=== PATIENT | male | born 1980 | race Caucasian/White ===

== ENCOUNTER → 2017-06-23 12:20 | Outpatient (CLI) | payer OTHER, SELFPAY ==
--- NOTE | 2017-06-23 12:26 | XR_ITS ---
XR KUB HISTORY: ITS.REASON: KIDNEY STONE ORDERING PHYSICIAN: Frantz Daley MD PATIENT AGE: 37 years COMPARISON: FINDINGS: The bowel gas pattern is unremarkable. No obvious obstruction.. No abnormal calcifications are evident. No obvious renal or ureteral calculi.. No acute bony anomalies evident. There was a right UVJ stone on previous CT of 06/01/2017. Small calcific density is present in the right pelvic region but is felt to represent phlebolith more inferior than water one would expect the ureterovesical junction. No definite ureteral calculi evident. IMPRESSION: No obvious renal or ureteral stones.
== END ==
PROVIDERS: PCP Family Medicine; Visit Provider Urology
DX: N20.0 Calculus of kidney (principal)
CPT/HCPCS: 74018

== ENCOUNTER → 2017-07-13 13:24 | Outpatient (CLI) | payer OTHER, SELFPAY ==
--- NOTE | 2017-07-13 13:28 | CT_ITS ---
CT abdomen pelvis wo con Ordering Physician: Frantz Daley MD Patient Age: 37 years: Male HISTORY: ITS.REASON: URETERAL CALCULUS Right flank pain right-sided kidney stone 37-year-old TECHNIQUE: Helical CT scanning performed abdomen pelvis with no oral nor IV contrast utilized. Axial sagittal and coronal reconstructions performed on CT workstation. All CT scans at this facility used one or more dose reduction techniques , viz: automatic exposure control, ma/Kv adjustment per patient's size, (including targeted exam where dose matched to the indication; i.e. head); or iterative reconstruction technique COMPARISON :June 01, 2017 CT abdomen pelvis ====FINDINGS ==== TRACT. Again see a small 2.5 mm calcification at the right pelvis basin which appears appears be a persistent small calculus distal most right UVJ.., As seen on 06/01/2017 CT abdomen. However on the previous CT abdomen study the right ureter appears mildly dilated throughout. Now appears smaller and decompressed overall. Only The final 2 cm leading towards this right UVJ stone appear slightly dilated... There is no associated right hydronephrosis or significant dilatation of proximal right ureter seen on this follow-up study. No additional renal calculi within either kidney. Kidneys normal in shape and configuration. Prostate moderate size as are seminal vesicles. Phlebolith at the left pelvic basin noted and unchanged. Lung bases. Clear. No active disease heart normal size Abdomen/pelvis. Lack of oral and IV contrast decreases sensitivity. Liver. Suggestion of vague slightly patchy fatty changes throughout. No focal lesions of concern. Spleen normal size. Noncontrast pancreas unremarkable. Adrenals unremarkable. Gallbladder. Likely sludge but no discrete calcified stones No free fluid or free air within the pelvis or abdomen. GI TRACT.: Stomach. Moderate food and fluid within stomach.. Small bowel. Unremarkable no dilatation or obstruction. Terminal ileum unremarkable. Appendix upper normal caliber of 8 mm but appears similar to previous study with no significant stranding or inflammation otherwise to raise concern.. Moderate stool the right colon and cecum; with minimal stool & gas otherwise throughout the left colon Osseous... No lesions. Disc space narrowing L5/S1 IMPRESSION 1. Small 2.5 mm calculus right ureter just proximal to the right UVJ is again seen it itself has not changed significantly since 06/01/2017 CT However since prior study the right ureter appears to have decompressed , and returned to near normal caliber. Only suggestion slight generous caliber distal most right ureter just medial proximal distal ureteral stone. No hydronephrosis & majority of right ureter otherwise is normal caliber & unremarkable.
== END ==
PROVIDERS: Family Provider Family Medicine; PCP Family Medicine; Visit Provider Urology
DX: N20.0 Calculus of kidney (principal)
CPT/HCPCS: 74176

== ENCOUNTER 2019-10-21 23:03 | Emergency (ER) | payer MEDICAID, SELFPAY ==
[2019-10-21 23:12] VITALS: BP 147/75; RESP 15; TEMP 36.8; O2SAT 98; BMI 21.9
--- NOTE | 2019-10-21 23:17 | CT_ITS ---
Procedure: CT ABDOMEN PELVIS CON Referring Doctor: Sofia Uriostegui Patient Age:39Y CLINICAL INDICATION: KIDNEY STONE PROTOCOL Left-sided abdominal pain that started tonight nonsmoker. History of kidney stones surgically removed COMPARISON: CT ABDPELWO CT abdomen pelvis wo [facility] from 07/13/2017 TECHNIQUE: No oral nor IV contrast utilized. Helical axial images obtained with sagittal and coronal reformats. All CT scans at the facility use one or more dose reduction, viz: automated exposure control, ma/kV adjustment per patient size (including targeted exams where dose is matched to indication, i.e. head), or iterative reconstruction technique. FINDINGS: Lower thorax: No acute finding ABDOMEN: Liver: No masses or biliary dilatation. Gallbladder: Nondistended. No radio opaque stones. Pancreas: No masses or peripancreatic fluid collections. Spleen: unremarkable Adrenals: unremarkable TRACT Left tract: Mild left-sided obstructive uropathy due to a small 2 mm stone projected over the posterior left aspect urinary bladder at left trigone, and on verge of passing through the lips of the distal most left UVJ.. Mild dilatation of the left ureter and mild left hydronephrosis results. No additional calculi or findings at the left kidney. Right kidney and ureter unremarkable. No calculi or obstruction or findings. PELVIS otherwise at normal sized prostate.. Generous seminal vesicles. A few stable phleboliths there is again seen at the pelvic basin . GI TRACT . . Stomach. Moderate contents. A mildly distended with food and fluid. Small-bowel unremarkable upper normal caliber proximal small bowel no wall thickening. Terminal ileum unremarkable. Appendix: No appendicitis evident. Upper normal wall thickness at the base of the appendix but overall appears WNL Large bowel. A generous stool at the right colon and transverse colon a could reflect a borderline to mild constipation but unimpressive. Descending colon appears minimal stool the 11 Peritoneum: No abnormal fluid collections. No obvious inflammatory changes. No free air. Lymph nodes: No enlarged lymph nodes apparent. Vasculature: No evidence of abdominal aortic aneurysm. No retroperitoneal findings. Bones: No acute fracture disc space narrowing L5/S1 IMPRESSION: Mild left obstructive uropathy-due to a tiny 2 mm or less stone at the distal most UVJ,seen projected over the posterior left bladder, and on the verge of passing through the final lips of left UVJ into the bladder. Mild dilatation of left ureter mild hydronephrosis results . No additional urinary tract calculi or findings. Dictated by: Will Espinoza MD 10/22/2019 12:17 Will Espinoza MD in [place] 10/22/2019 12:17
[2019-10-21 23:20] LABS: Microscopic, Urine URINE MICROSCOPIC (MICROSCOPIC)
[2019-10-21 23:23] LABS: Basophils # 0.1 K/mm3 (0-0.2); Basophils % 0.8 % (0.1-2.0); Eosinophils # 0.5 K/mm3 (0.0-0.4); Eosinophils % 5.1 % (0.1-12.0); Hematocrit 45.1 % (42.0-52.0); Hemoglobin 15.5 g/dL (14.1-18.0); Lymphocytes # 2.3 K/mm3 (0.7-4.5); Lymphocytes % 25.7 % (10-50); Mean Corpuscular HGB Conc 34.4 g/dL (31.8-35.4); Mean Corpuscular Hemoglobin 32.3 pg (27.0-31.2); Mean Corpuscular Volume 93.9 fl (80-94); Mean Platelet Volume 7.2 fl (7.4-10.4); Monocytes # 0.5 K/mm3 (0.1-1.0); Monocytes % 5.3 % (1.7-9.3); Neutrophils # 5.6 K/mm3 (1.8-7.8); Neutrophils % 63.1 % (37.0-80.0); Platelet Count 214 K/mm3 (142-424); Red Cell Distribution Width 13.4 % (11.5-17.5); White Blood Count 8.9 K/mm3 (4.8-10.8)
[2019-10-21 23:25] LABS: Appearance,Urine CLEAR (Clear); Bilirubin,Urine Negative (Negative); Blood, Urine 3+ (Negative); Color,Urine YELLOW (Yellow); Glucose,Urine (UA) Negative (Negative); Ketones,Urine Negative (Negative); Leukocyte Esterase,Urine Negative (Negative); Nitrate,Urine Negative (Negative); PH,Urine 5.5 (5.0-8.5); Protein,Urine Negative (Negative); Specific Gravity, Urine >= 1.030 (1.005-1.030); Urobilinogen,Urine 0.2 EU/dl (0.2)
[2019-10-21 23:29] LABS: RBC,Urine 20-50 #/hpf (0-3)
[2019-10-21 23:30] VITALS: BP 148/72; PULSE 67; RESP 17; O2SAT 96
--- NOTE | 2019-10-21 23:33 | HMH.EDGENADL ---
ED Disposition Clinical Impression: Nephrolithiasis Disposition: Home, Self-Care Condition on Discharge: Good Additional Instructions: Follow up with your PCP and your urologist. Return if your pain is not controlled by oral medications or you have intractable vomiting, fever, or any other concerns. Prescriptions: Tamsulosin HCl [Flomax 0.4mg capsule] 0.4 mg PO HS #30 cap Prescription Printed Hydrocodone/Acetaminophen [Hydrocodone-Acetamin 5-325 mg] 1 each PO Q4-6H PRN #6 tab PRN Reason: Moderate To Severe Pain Prescription Printed Ondansetron [Zofran 4mg ODT] 4 mg PO Q4-6H PRN #9 tab.rapdis PRN Reason: Nausea Prescription Printed Referrals: Sang Bynum [Primary Care Provider] - - Critical Care Critical Care Time: No Attestation: On 10/21/19, the high probability of a clinically significant, sudden or life threatening deterioration of the following system(s) required my full and direct attention, intervention and personal management. The time I documented below is in addition to time spent performing reported procedures but includes the following listed in this critical care notation. Medical Decision Making - Medical Records Medical records reviewed: Yes: I reviewed the patient's medical records. - Donnell Inquiry Pt receiving controlled substance: Yes Donnell was queried for this patient: Yes Reference #:: [id number] Risks and benefits of using a controlled substance: were discussed with pt by me Vital Signs: 10/21/19 23:12 10/21/19 23:30 10/22/19 00:00 Temperature 98.2 F Temperature Source Oral Pulse Rate Pulse Rate [Right Brachial] 67 64 Respiratory Rate 15 17 17 Blood Pressure Blood Pressure [Right Arm] 147/75 H 148/72 H 152/94 H Blood Pressure Mean [Right Arm] 99 97 113 Blood Pressure Source Blood Pressure Source [Right Arm] Automatic Cuff Automatic Cuff Automatic Cuff Blood Pressure Position Blood Pressure Position [Right Arm] Sitting Supine Supine 02 Sat by Pulse Oximetry 98 96 99 Oxygen Delivery Method Room Air Room Air Room Air 10/22/19 01:01 Temperature 98.2 F Temperature Source Oral Pulse Rate 66 Pulse Rate [Right Brachial] Respiratory Rate 17 Blood Pressure 146/70 H Blood Pressure [Right Arm] Blood Pressure Mean [Right Arm] Blood Pressure Source Automatic Cuff Blood Pressure Source [Right Arm] Blood Pressure Position Sitting Blood Pressure Position [Right Arm] 02 Sat by Pulse Oximetry Oxygen Delivery Method Room Air - Lab Data Lab Results 10/21/19 23:15: WBC 8.9, RBC 4.80, Hgb 15.5, Hct 45.1, MCV 93.9, MCH 32.3 H, MCHC 34.4, RDW 13.4, Plt Count 214, MPV 7.2 L, Neut % (Auto) 63.1, Lymph % (Auto) 25.7, [place] % (Auto) 5.3, Eos % (Auto) 5.1, Baso % (Auto) 0.8, Neut # (Auto) 5.6, Lymph # (Auto) 2.3, [place] # (Auto) 0.5, Eos # (Auto) 0.5 H, Baso # (Auto) 0.1 10/21/19 23:15: Sodium 135 L, Potassium 3.9, Chloride 96 L, Carbon Dioxide 28, Anion Gap 14.9, BUN 13, Creatinine 0.90, Estimated Creat Clear 86, Estimated GFR 94, Est GFR ( Amer) 114, Glucose 134 H, Calcium 9.3, Total Bilirubin 0.5, AST 33, ALT 22, Alkaline Phosphatase 98, Total Protein 7.6, Albumin 4.6, Globulin 3.0, Albumin/Globulin Ratio 1.5, Amylase 71, Lipase 96 10/21/19 23:15: Urine Color Yellow, Urine Appearance Clear, Urine pH 5.5, Ur Specific [place] >= 1.030, Urine Protein Negative, Urine Glucose (UA) Negative, Urine Ketones Negative, Urine Blood 3+, Urine Nitrate Negative, Urine Bilirubin Negative, Urine Urobilinogen 0.2, Ur Leukocyte Esterase Negative, Urine RBC 20-50 Result diagrams: 10/21/19 23:15 10/21/19 23:15 Orders (Tests/Meds): ED MEDICATIONS Discontinued Medications Generic Name Dose Route Start Last Admin Trade Name Azalia PRN Reason Stop Dose Admin Hydrocodone Bitart/Acetaminophen 1 tab 10/22/19 00:53 10/22/19 00:57 Delta 5/325mg Tablet PO 10/22/19 00:54 1 tab ONCE ONE Administration Sodium Chloride 1,000 mls @ 999 mls/hr 10/21/19 23:30 0
[2019-10-21 23:37] LABS: Alanine Aminotransferase 22 U/L (12-78); Albumin Level 4.6 g/dl (3.5-5.0); Albumin/Globulin Ratio 1.5 (1.1-1.8); Alkaline Phosphatase 98 U/L (38-126); Amylase 71 U/L (30-110); Anion Gap 14.9 mEq/L (5-15); Aspartate Amino Transferase 33 U/L (17-59); Bilirubin,Total 0.5 mg/dl (0.2-1.3); Blood Urea Nitrogen 13 mg/dl (9-20); Calcium 9.3 mg/dl (8.4-10.2); Carbon Dioxide 28 mmol/L (22.0-30.0); Chloride 96 mmol/L (98-107); Creatinine Clearance Estimated 86 mL/min (50-200); Estimated Glomerular Filt Rate 94 ml/min (>60); GFR (African American) 114 ML/MIN (>60); Glucose 134 mg/dl (74-100); Lipase 96 U/L (23-300); Potassium 3.9 mmoL/L (3.5-5.1); Sodium 135 mmol/L (136-145); Total Protein,Serum 7.6 g/dl (6.3-8.2)
[2019-10-22] VITALS: BP 152/94; PULSE 64; RESP 17; O2SAT 99
[2019-10-22 01:01] VITALS: BP 146/70; PULSE 66; RESP 17; TEMP 36.8; O2SAT 99
== END 2019-10-22 01:04 | disposition home or self-care (01) ==
PROVIDERS: Emergency Provider Emergency Medicine; PCP Family Medicine
DX: N20.0 Calculus of kidney (principal); Z87.442 Personal history of urinary calculi
CPT/HCPCS: 74176; 80053; 81001; 82150; 83690; 85025; 96365; 96375; 99284; J2405

== ENCOUNTER 2020-11-29 10:00 | Outpatient (RCR) | payer MEDICAID, SELFPAY | END 2020-11-29 10:05 | disposition home or self-care (01) | LOC: PT 10:00 | DX: M54.12 Radiculopathy, cervical region (principal) | CPT/HCPCS: 97010; 97012; 97014; 97110; 97163; G0283 ==

== ENCOUNTER → 2021-02-21 09:41 | Outpatient (POV) | payer MEDICAID, SELFPAY ==
[2021-02-21 10:07] VITALS: BP 130/76; PULSE 98; RESP 18; O2SAT 97; BMI 23.1
--- NOTE | 2021-02-21 12:11 | HMH.PMCON ---
Assessment and Plan (1) Degenerative joint disease of cervical spine Status: Chronic Category: Medical Code(s): M47.812 - Spondylosis without myelopathy or radiculopathy, cervical region (2) Cervical radiculopathy Status: Chronic Category: Medical Code(s): M54.12 - Radiculopathy, cervical region - Assessment and plan all Dx Assessment and Plan for all problems:: Patient and I did discuss his MRI today. We will schedule the patient for an epidural steroid injection at the C6-C7 area. He does have a disc bulge with mild stenosis at this area. We will follow-up with him afterwards for further evaluation. We will place the patient back on gabapentin 300 mg 1 tablet p.o. twice daily. This did give him significant relief in the past. He has had physical therapy which gave him up to 60 to 65% relief as well. He will continue with home stretching. He is not diabetic and is not on any anticoagulation therapy. Risks and benefits of the medication have been explained in detail to the patient. If side effects do present with the medication, patient has been advised to stop the medication immediately and call the clinic. The patient has been advised to consult with his/her primary care provider and pharmacist regarding drug-drug interaction of medications currently prescribed. Possible side effects of corticosteroids have been discussed with the patient. Risks and benefits of the procedure have been explained to the patient. Patient would like to proceed with the procedure. Patient has been instructed to contact the clinic with any concerns before the next appointment. Dr. Vasques has reviewed this note and agrees with this plan of care. This note was dictated using voice recognition software and make contain errors or omissions. HPI - Data of Consult Patient: new to practice Consult date: 02/21/21 Requesting Physician: Lydia Ca APRN - Consult Narrative Reason for consult: Neck pain History of present illness: Mr. Au is a 40 year old male who presents today for consultation for neck pain. The patient says that he began to have significant neck pain in September 2020. It is progressively worsened. He is also having pain into the left axilla area and numbness and tingling into his first and second fingers. He does take anti-inflammatories. He denies any recent trauma or event that contributed to the pain. He says that he has taken oral corticosteroids and 1 steroid injection with his PCP that did not give him relief. He was referred to physical therapy which gave him 65% relief after therapy. He does continue to have some pain, however. He was started on gabapentin. He does report to have gotten up to 40% relief with gabapentin, but did stop taking the medication because he did think the pain had resolved. Unfortunately, the patient's pain did return. He was referred to us for possible injective therapy. He does have an MRI from 2020. He denies any vision changes, headaches, nausea, or vomiting. Movement does not lessen or worsen the pain. Prior to undergoing physical therapy, lifting his arm above his head did give him relief. He says since therapy he does not have to raise his arm to get relief. CC: Lydia Ca APRN [facility] History I have reviewed the patient's past medical history: Yes Medical History: Reports:: Kidney Stones Denies:: Cancer, Diabetes Mellitus Type 1, Diabetes Mellitus Type 2, Internal Pacemaker, MRSA, Seizures *Have you ever received a pneumonia vaccine?: No *Have you received a flu vaccine this season?: No Other Medical History: Denies: Blood Transfusion Reaction Laterality Cases: Right: ACL Repair, Arthroscopy Shoulder Other Surgeries: Yes: No Previous Surgery. No: Pacemaker Amputation: No Fractures: No - *Social History Smoking Status: Never smoker Alcohol Intake: never Alcohol Intake Frequency:: a few times a month Substance Use Type: denies use *Occupational Status:: unemp
== END ==
PROVIDERS: Visit Provider Clinical Nurse Specialist Family Health
DX: M47.896 Other spondylosis, lumbar region (principal); M54.12 Radiculopathy, cervical region
CPT/HCPCS: 99202; G0463

== ENCOUNTER 2021-03-08 15:01 | Day surgery (SDC) | payer MEDICAID, SELFPAY ==
[2021-03-08 15:09] VITALS: BP 142/76; PULSE 89; RESP 20; TEMP 36.2; O2SAT 97; BMI 23.3
[2021-03-08 15:31] VITALS: BP 142/72; PULSE 89; RESP 18; O2SAT 96
[2021-03-08 15:32] VITALS: PULSE 86; RESP 18; O2SAT 96
[2021-03-08 15:35] VITALS: BP 132/77; PULSE 68; RESP 20; O2SAT 95
--- NOTE | 2021-03-08 15:38 | HMH.PMPROC ---
- Procedure Date: 03/08/21 Time: 15:38 Anesthesiologist:: Mack Vasques MD Complications:: None Pre-procedure Diagnosis:: Degenerative disc disease of the cervical spine with cervical radiculopathy symptoms Post-procedure Diagnosis:: Same Indications for Procedure:: This patient is a pleasant 40-year-old white male who we are treating for neck pain with cervical radicular symptoms. He is doing well with gabapentin. Most of his pain is in the neck radiating to the left arm. We will plan on a cervical epidural steroid injection under fluoroscopy today. Procedure Details:: Cervical epidural steroid injection under fluoroscopy Informed consent was obtained and the risks and benefits of the procedure was explained to the patient. The patient was taken to the procedure room placed prone on the procedure table. The neck was prepped using ChloraPrep. The skin and subcutaneous tissues were anesthetized using lidocaine. I placed a 18-gauge epidural needle into the C5-C6 interspace and advanced using [id number] to air and fluoroscopic guidance. After confirmation of needle placement in the epidural space with dye, I injected 3 mL's lidocaine 1.5% and Depo-Medrol 80 mg. The patient tolerated the procedure well with no complications. Plan and Disposition:: We will follow-up with him in 2 weeks. Will reevaluate symptoms at that time.
== END 2021-03-08 15:35 | disposition home or self-care (01) ==
PROVIDERS: PCP Family Medicine; Visit Provider Anesthesiology
DX: M50.10 Cervical disc disorder with radiculopathy, unspecified cervical region (principal)
CPT/HCPCS: 62321; J1040; Q9966

== ENCOUNTER → 2021-03-28 14:34 | Outpatient (POV) | payer MEDICAID, SELFPAY ==
[2021-03-28 14:39] VITALS: BP 138/72; PULSE 70; RESP 18; O2SAT 98; BMI 23.1
--- NOTE | 2021-03-28 15:19 | HMH.PAINSOAP ---
[facility] Pain Management SOAP Note Subjective:: She is a very pleasant 40-year-old white male who presents today for follow-up and medication refills. He is currently being treated for degenerative disc disease of the cervical spine with cervical radiculopathy. He is currently managed with gabapentin 300 mg twice daily that is prescribed by our clinic and he recently underwent a cervical epidural steroid injection under fluoroscopy on March 08, [address] LORI Paul. He notes 50% pain relief that is ongoing. Overall he states that his current pain symptoms are manageable with his current regimen and this recent injection. He rates his pain as a 4 out of 10 today. He is requesting refills on the gabapentin. ROS General: No recent weight changes, no fever, no sleep disturbances Respiratory: No cough, no shortness of air, no recurring pulmonary infections Cardiovascular/peripheral vascular: No chest pain, no palpitations, no edema, no shortness of breath Gastrointestinal: No new onset incontinence, normal bowel movements reported Genitourinary: No new onset incontinence Musculoskeletal: Neck pain, arm pain Psychiatric: [Normal mood/affect] Neurological: [Denies weakness in extremities], [denies balance issues] Objective:: General: Alert and oriented x3, no acute distress, pleasant and cooperative Lungs: Resps E/U, symmetric chest expansion Eyes: PERRL Musculoskeletal: limited flexion and extension of the cervical spine secondary to pain. Deep tendon reflexes were normal in bilateral upper and lower extremities. Motor exam was grossly intact in the bilateral upper and lower extremities. Neurological: Speech is clear, religion professor equal, no gross sensory deficits Assessment:: Degenerative disease of the cervical spine with cervical radiculopathy Plan:: Pramod with the patient that we will closely monitor symptoms for now and refill gabapentin 300 mg 1 tablet p.o. twice daily #60 for 1 month supply with 2 refills. We will closely monitor and I discussed with the patient should the pain start to return or worsen we will schedule him for repeat cervical epidural steroid injection. We will follow-up with this patient in 1 month for reassessment of his chronic pain symptoms and medication refills [facility] History Medical History: Reports:: Kidney Stones Denies:: Cancer, Diabetes Mellitus Type 1, Diabetes Mellitus Type 2, Internal Pacemaker, MRSA, Seizures *Have you ever received a pneumonia vaccine?: No *Have you received a flu vaccine this season?: No Other Medical History: Reports: Arthritis. Denies: Blood Transfusion Reaction Laterality Cases: Right: ACL Repair, Arthroscopy Shoulder Other Surgeries: Yes: No Previous Surgery. No: Pacemaker Amputation: No Fractures: No - *Social History Smoking Status: Never smoker Alcohol Intake: never Alcohol Intake Frequency:: a few times a month Substance Use Type: denies use *Occupational Status:: unemployed Housing: house Household Members: family *Travel in the last 8 weeks: None Family Hx:: Other
== END ==
PROVIDERS: Visit Provider Anesthesiology Pain Medicine
DX: M50.10 Cervical disc disorder with radiculopathy, unspecified cervical region (principal)
CPT/HCPCS: 99212; G0463

== ENCOUNTER 2021-04-18 10:00 | Outpatient (RCR) | payer MEDICAID, SELFPAY | END 2021-04-18 10:05 | disposition home or self-care (01) | LOC: PT 10:00 | PROVIDERS: PCP Family Medicine | DX: M54.12 Radiculopathy, cervical region (principal) | CPT/HCPCS: 97010; 97012; 97014; 97110; 97163; 97164; G0283 ==

== ENCOUNTER → 2021-04-25 14:19 | Outpatient (POV) | payer MEDICAID, SELFPAY ==
[2021-04-25 14:36] VITALS: BP 114/69; PULSE 78; RESP 18; TEMP 37.2; O2SAT 97; BMI 23.1
--- NOTE | 2021-04-25 16:09 | P.CONS_ITS ---
[facility] Pain Management SOAP Note Subjective:: Patient is a pleasant 40-year-old male who is here for medication refill and follow-up. Patient is currently being treated for degenerative disc disease of the cervical spine with cervical radiculopathy. Patient is being managed with gabapentin 300 mg twice a day and cervical epidural steroid injection. Patient denies any side effects from the medications. Patient denies any changes to the location and type of pain. Patient states that this is adequately helping manage their pain. Rates pain as 1 out of 10. Patient is here today for follow-up after a cervical epidural steroid injection. Patient continues to have relief after his cervical epidural steroid injection. General: No recent weight changes, no fever, no sleep disturbances Respiratory: No cough, no shortness of air, no recurring pulmonary infections Cardiovascular/peripheral vascular: No chest pain, no palpitations, no edema, no shortness of breath Gastrointestinal: No new onset incontinence, normal bowel movements reported Genitourinary: No new onset incontinence Musculoskeletal: Improving neck pain Psychiatric: [Normal mood/affect] Neurological: [Denies weakness in extremities], [denies balance issues] Objective:: General: Alert and oriented x3, no acute distress, pleasant and cooperative, [on room air] Lungs: Respirations even and unlabored, symmetrical chest expansion Eyes: PERRL Musculoskeletal: Flexion and extension of cervical [spine] somewhat guarded secondary to pain, [antalgic gait noted] Neurological: Speech clear, no gross sensory deficit Assessment:: Degenerative disc disease of the cervical spine with cervical radiculopathy symp toms Plan:: Patient is currently being managed with gabapentin 300 mg twice a day. Patient has 3 months worth of refills. Patient reports no issues with this medication. Additionally, patient continues to have relief after his cervical epidural steroid injection. We would like to see the patient back in 2 months to see if he needs repeat cervical epidural steroid injection. Patient has been instructed to contact the clinic with any concerns before the next appointment. Dr. Vasques has reviewed this note and agrees with this plan of care. This note was dictated using voice recognition software and make contain errors or omissions. [facility] History Medical History: Reports:: Kidney Stones Denies:: Cancer, Diabetes Mellitus Type 1, Diabetes Mellitus Type 2, Internal Pacemaker, MRSA, Seizures *Have you ever received a pneumonia vaccine?: No *Have you received a flu vaccine this season?: No Other Medical History: Reports: Arthritis. Denies: Blood Transfusion Reaction Laterality Cases: Right: ACL Repair, Arthroscopy Shoulder Other Surgeries: Yes: No Previous Surgery. No: Pacemaker Amputation: No Fractures: No - *Social History Smoking Status: Never smoker Alcohol Intake: never Alcohol Intake Frequency:: a few times a month Substance Use Type: denies use *Occupational Status:: unemployed Housing: house Household Members: family *Travel in the last 8 weeks: None Family Hx:: Other
== END ==
PROVIDERS: Visit Provider Student in an Organized Health Care Education/Training Program
DX: M50.10 Cervical disc disorder with radiculopathy, unspecified cervical region (principal)
CPT/HCPCS: 99212; G0463

== ENCOUNTER → 2021-06-20 13:25 | Outpatient (POV) | payer MEDICAID, SELFPAY ==
[2021-06-20 13:38] VITALS: BP 122/79; PULSE 88; RESP 18; TEMP 36.6; O2SAT 96; BMI 22.8
--- NOTE | 2021-06-20 13:48 | P.CONS_ITS ---
[facility] Pain Management SOAP Note Subjective:: Patient is a pleasant 41-year-old male who presents today for follow-up. Patient is currently being treated for upper back pain. He had a cervical epidural steroid injection that provided some relief. He is currently being managed with gabapentin 300 mg twice a day. He says that he only takes this every now and then. He also states that he feels like the medication is not helping with the type of pain that he has. He has pain around his left shoulder blade that radiates anteriorly. He rates his pain today as 3 out of 10. Donnell [id number] morphine equivalent of 0. Review of Systems: General: No recent weight changes, no fever, no sleep disturbances Respiratory: No cough, no shortness of air, no recurring pulmonary infections Cardiovascular/peripheral vascular: No chest pain, no palpitations, no edema, no shortness of breath Gastrointestinal: No new onset incontinence, normal bowel movements reported Genitourinary: No new onset incontinence Musculoskeletal: Upper back pain Psychiatric: [Normal mood/affect] Neurological: [Denies weakness in extremities], [denies balance issues] Objective:: Physical Exam: General: Alert and oriented x3, no acute distress, pleasant and cooperative Lungs: Respirations even and unlabored, symmetrical chest expansion Eyes: PERRL Musculoskeletal: Patient is tender to palpation around the left shoulder blade. Neurological: Speech clear, no gross sensory deficit Assessment:: Myofascial pain Chronic neck pain Plan:: We will not continue the patient's gabapentin 300 mg twice a day. I will start the patient on diclofenac 75 mg twice a day #60 tabs. We will start the patient on a compounding cream. If the patient gets minimal relief from these medications, we will consider doing a trigger point injections around his left shoulder blade. Follow-up in 1 month Patient has been instructed to contact the clinic with any concerns before the next appointment. Dr. Vasques has reviewed this note and agrees with this plan of care. This note was dictated using voice recognition software and make contain errors or omissions. [facility] History Medical History: Reports:: Kidney Stones Denies:: Cancer, Diabetes Mellitus Type 1, Diabetes Mellitus Type 2, Internal Pacemaker, MRSA, Seizures *Have you ever received a pneumonia vaccine?: No *Have you received a flu vaccine this season?: No Other Medical History: Reports: Arthritis. Denies: Blood Transfusion Reaction Laterality Cases: Right: ACL Repair, Arthroscopy Shoulder Other Surgeries: Yes: No Previous Surgery. No: Pacemaker Amputation: No Fractures: No - *Social History Smoking Status: Never smoker Alcohol Intake: never Alcohol Intake Frequency:: a few times a month Substance Use Type: denies use *Occupational Status:: unemployed Housing: house Household Members: family *Travel in the last 8 weeks: None Family Hx:: Other
== END ==
PROVIDERS: Visit Provider Student in an Organized Health Care Education/Training Program
DX: M79.12 Myalgia of auxiliary muscles, head and neck
CPT/HCPCS: 99212; G0463

== ENCOUNTER → 2021-07-23 08:52 | Outpatient (POV) | payer MEDICAID, SELFPAY ==
[2021-07-23 09:01] VITALS: BP 121/72; PULSE 54; RESP 18; TEMP 36.8; O2SAT 100; BMI 23.1
--- NOTE | 2021-07-23 09:43 | P.CONS_ITS ---
[facility] Pain Management SOAP Note Subjective:: This patient is a pleasant 41-year-old male that returns our clinic today with a continued complaint of left scapular pain. Patient was seen in our clinic on 06/20/2021. At this time with a similar complaint he was placed on diclofenac 75 mg 1 p.o. twice daily. Patient states this has not been of any help to him. Upon examination the patient does have some tenderness on the medial border of the scapula on the left side. However, patient states if he stretches and turns his head to the side he has sharp pain that runs down to his scapula from the base of his neck. Patient also complains of left arm radicular symptoms into the left hand including numbness in the fingers. He has tried 6 to 8 weeks of physical therapy in the past with. Patient states this has helped him to some degree. However, still having same symptoms. Patient has tried and failed NSAIDs. Also, patient I did review a cervical MRI that we have on the system from September of last year. It does show multilevel degenerative disc cervical spine. Some cervical stenosis. I went over the details of the MRI with the p kathrine. I suggest to the patient cervical epidural steroid injection. I answered his questions. He rates his pain 7/10. However, he states he can go 1 to 3 weeks without pain at times. Other times after any activity he has this sharp stabbing pain from the base of his neck to the left medial scapula. Objective:: Patient is awake alert [place] x3. In no acute distress. Flexion-extension lumbar and cervical spine normal. Deep tendon reflexes upper lower extremities normal. There is no gross sensory deficit. Gait is normal. Assessment:: Degenerative disc disease cervical spine. Cervical radicular symptoms to the left arm. Cervical spinal stenosis. Plan:: We will proceed with cervical epidural steroid injection. This will be the C7- T1 level. [facility] History Medical History: Reports:: Kidney Stones Denies:: Cancer, Diabetes Mellitus Type 1, Diabetes Mellitus Type 2, Internal Pacemaker, MRSA, Seizures *Have you ever received a pneumonia vaccine?: No *Have you received a flu vaccine this season?: No Other Medical History: Reports: Arthritis. Denies: Blood Transfusion Reaction Laterality Cases: Right: ACL Repair, Arthroscopy Shoulder Other Surgeries: Yes: No Previous Surgery. No: Pacemaker Amputation: No Fractures: No - *Social History Smoking Status: Never smoker Alcohol Intake: never Alcohol Intake Frequency:: a few times a month Substance Use Type: denies use *Occupational Status:: other Housing: house Household Members: family *Travel in the last 8 weeks: None Family Hx:: Other
== END ==
PROVIDERS: Visit Provider Nurse Anesthetist, Certified Registered
DX: M50.13 Cervical disc disorder with radiculopathy, cervicothoracic region (principal); M48.03 Spinal stenosis, cervicothoracic region
CPT/HCPCS: 99212; G0463

== ENCOUNTER 2021-08-09 12:38 | Day surgery (SDC) | payer MEDICAID, SELFPAY ==
[2021-08-09 13:12] VITALS: BP 126/77; PULSE 78; RESP 16; TEMP 36.3; O2SAT 95; BMI 22.5
[2021-08-09 13:31] VITALS: BP 130/74; PULSE 87; RESP 18
[2021-08-09 13:32] VITALS: BP 138/72; PULSE 76; RESP 18; O2SAT 98
--- NOTE | 2021-08-09 13:36 | [facility].PMPROC ---
- Procedure Date: 08/09/21 Time: 13:36 Anesthesiologist:: Mack Vasques MD Complications:: None Pre-procedure Diagnosis:: Degenerative disc disease of cervical spine with cervical radiculopathy symptoms Post-procedure Diagnosis:: Same Indications for Procedure:: Patient is a pleasant 41-year-old white male who we are treating for neck pain with cervical radicular symptoms. Most of his pain is in the neck radiating to the left scapular area and left shoulder. We will do a cervical epidural steroid injection under fluoroscopy today to see if this helps with his pain symptoms. Procedure Details:: Cervical epidural steroid injection under fluoroscopy Informed consent was obtained and the risks and benefits of the procedure was explained to the patient. The patient was taken to the procedure room placed prone on the procedure table. The neck was prepped using ChloraPrep. The skin and subcutaneous tissues were anesthetized using lidocaine. I placed a 18-gauge epidural needle into the C5-C6 interspace and advanced using [id number] to air and fluoroscopic guidance. After confirmation of needle placement in the epidural space with dye, I injected 3 mL's lidocaine 1.5% and Depo-Medrol 80 mg. The patient tolerated the procedure well with no complications. Plan and Disposition:: We will follow-up with him in 2 weeks. Will reevaluate his symptoms at that time.
[2021-08-09 13:41] VITALS: BP 116/72; PULSE 57; RESP 20; O2SAT 97
== END 2021-08-09 13:41 | disposition home or self-care (01) ==
LOC: SC.PAINP 12:39
PROVIDERS: PCP Family Medicine; Visit Provider Anesthesiology
DX: M50.122 Cervical disc disorder at C5-C6 level with radiculopathy (principal)
CPT/HCPCS: 62321; J1040; Q9966

== ENCOUNTER 2023-02-26 10:00 | Outpatient (RCR) | payer MEDICAID, SELFPAY | END 2023-02-26 11:10 | disposition home or self-care (01) | LOC: OT 10:00 | PROVIDERS: PCP Family Medicine; Visit Provider Orthopaedic Surgery | DX: M25.511 Pain in right shoulder (principal); Z98.890 Other specified postprocedural states | CPT/HCPCS: 97010; 97014; 97110; 97140; 97164; 97165; 97530; G0283 ==